=== PATIENT | female | born 1985 | race Caucasian/White ===

== ENCOUNTER → 2023-12-09 14:10 | Outpatient (CLI) | payer OTHER, SELFPAY ==
--- NOTE | 2023-12-09 | DI.US.S_ITS ---
PROCEDURE: US PERIPH VENOUS UP EXTREM LT INDICATIONS: LEFT ARM SWELLING TECHNIQUE: Real-time imaging, as well as color and pulse Doppler interrogation, was performed of the upper extremity deep veins from the inferior neck to the antecubital fossa. COMPARISON: None. FINDINGS: The internal jugular vein, visualized portions of the axillary, and brachial veins are free of intraluminal thrombus. There is thrombus identified within the proximal and mid subclavian vein. Where physically possible, the veins are normally compressible. Color and pulse Doppler demonstrate normal intraluminal flow, with expected phasicity and pulsatility. Additional scanning of the cephalic and basilic veins of the superficial system demonstrates normal compressibility, without thrombus. IMPRESSION: Thrombus is present in the proximal and mid subclavian vein. Dictated by: Thuy Osuna M.D. on 12/10/2023 at 11:15 Approved by: Thuy Osuna M.D. on 12/10/2023 at 11:16
== END ==
PROVIDERS: PCP Family Medicine; Referring Provider Registered Nurse; Visit Provider Registered Nurse
DX: C50.411 Malignant neoplasm of upper-outer quadrant of right female breast (principal); I82.B12 Acute embolism and thrombosis of left subclavian vein; M79.89 Other specified soft tissue disorders; Z17.1 Estrogen receptor negative status [ER-]
CPT/HCPCS: 93971